=== PATIENT | female | born 1985 | race Caucasian/White ===

== ENCOUNTER 2017-11-03 06:09 | Day surgery (SDC) | payer SELFPAY ==
[2017-11-03 06:56] LABS: BASO # 0.1 K/uL (0.0-0.2); BASO % 0.6 % (0.0-2.0); EOS # 0.4 K/uL (0.0-0.7); EOS % 4.1 % (0.0-4.0); LYMPH # 2.1 K/uL (1.0-4.3); LYMPH % 22.3 % (20.0-40.0); MEAN CELL VOLUME 90.1 fL (81.0-99.0); MEAN CORPUSCULAR HEMOGLOBIN 31.5 pg (27.0-31.0); MEAN PLATELET VOLUME 9.2 fL (7.2-11.7); MONO # 0.6 K/uL (0.0-0.8); MONO % 6.7 % (0.0-10.0); NEUT # 6.2 K/uL (1.8-7.0); NEUT % 66.3 % (50.0-75.0); NRBC % 0.1 % (0.0-2.0); RBC 4.12 Mil/uL (3.80-5.20); RED CELL DISTRIBUTION WIDTH 13.2 % (11.5-14.5); WHITE BLOOD COUNT 9.3 K/uL (4.8-10.8)
--- NOTE | 2017-11-03 06:59 | C.PDOC ---
History Of Present Illness 32 year old female, who is currently 8 weeks (), presents to the ED for evaluation of vaginal bleeding and abdominal cramping which began two weeks ago and worsened today. Patient was evaluated by her CONTACT CLERK and underwent an ultrasound which showed a missed . Patient was advised to present to the ED for a D&C. Patient denies fever, chills. Time Seen by Provider: 11/03/17 06:25 Chief Complaint (Nursing): Female Genitourinary History Per: Patient History/Exam Limitations: no limitations Onset/Duration Of Symptoms: Days Current Symptoms Are (Timing): Worse Quality Of Discomfort: Cramping Associated Symptoms: denies: Fever, Chills Additional History Per: Patient Abnormal Vaginal Bleeding: Yes : 2 Para: 1 Past Medical History Reviewed: Historical Data, Nursing Documentation, Vital Signs Vital Signs: Last Vital Signs Temp 98.7 F 11/03/17 06:16 Pulse 110 H 11/03/17 06:16 Resp 20 11/03/17 06:16 BP 129/87 11/03/17 06:16 Pulse Ox 100 11/03/17 06:16 - Medical History PMH: No Chronic Diseases Surgical History: No Surg Hx Family History: States: Unknown Family Hx - Social History Hx Alcohol Use: No Hx Substance Use: No Review Of Systems Gastrointestinal: Positive for: Other (abdominal cramping ) Genitourinary: Positive for: Vaginal Bleeding Physical Exam - Physical Exam Appears: Non-toxic, No Acute Distress Skin: Normal Color, Warm, Dry Head: Atraumatic, Normacephalic Eye(s): bilateral: Normal Inspection Oral Mucosa: Moist Neck: Supple Chest: Symmetrical, No Deformity, No Tenderness Cardiovascular: Rhythm Regular, No Murmur Respiratory: Normal Breath Sounds, No Rales, No Rhonchi, No Wheezing Gastrointestinal/Abdominal: Soft, No Tenderness, No Guarding, No Rebound Extremity: Normal ROM, Capillary Refill (less than 2 seconds ) Neurological/Psych: Oriented x3, Normal Speech, Normal Cognition ED Course And Treatment O2 Sat by Pulse Oximetry: 100 (on RA) Pulse Ox Interpretation: Normal Disposition - Disposition - 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 - Scribe Statement The provider has reviewed the documentation as recorded by the Scribe (Shirley Larsen) All medical record entries made by the Scribe were at my direction and personally dictated by me. I have reviewed the chart and agree that the record accurately reflects my personal performance of the history, physical exam, medical decision making, and the department course for this patient. I have also personally directed, reviewed, and agree with the discharge instructions and disposition.
--- NOTE | 2017-11-03 07:00 | C.PDOC ---
History Of Present Illness 32 y/o female 8 week here for vaginal bleeding intermittently x 2 weeks but worse today with clots and suprapubic pain. No dizziness, weakness, fever Time Seen by Provider: 11/03/17 06:25 Chief Complaint (Nursing): Female Genitourinary History Per: Patient History/Exam Limitations: no limitations Current Symptoms Are (Timing): Still Present Severity: Moderate Associated Symptoms: denies: Fever, Back Pain Past Medical History Vital Signs: Last Vital Signs Temp 98.7 F 11/03/17 06:16 Pulse 110 H 11/03/17 06:16 Resp 20 11/03/17 06:16 BP 129/87 11/03/17 06:16 Pulse Ox 100 11/03/17 06:16 - Medical History PMH: No Chronic Diseases Family History: States: Unknown Family Hx - Social History Hx Alcohol Use: No Hx Substance Use: No Review Of Systems Constitutional: Negative for: Fever, Malaise Gastrointestinal: Positive for: Abdominal Pain Genitourinary: Positive for: Vaginal Bleeding Neurological: Negative for: Weakness Physical Exam - Physical Exam Appears: Well, Non-toxic Eye(s): bilateral: Normal Inspection, PERRL Cardiovascular: Rhythm Regular Respiratory: Normal Breath Sounds Gastrointestinal/Abdominal: Normal Exam, Tenderness (suprapubic), No Guarding Pelvic: Other (deferred- pt refused) ED Course And Treatment O2 Sat by Pulse Oximetry: 100 Progress Note: Labs sent. Case d/w Dr Noe, pt's OB who reported pt's previous US showed missed AB and in light of worseninf pain and heavy bleeding will admit to same day surgery for D&C. Disposition - Disposition Disposition: HOSPITALIZED Disposition Time: 07:04 Condition: STABLE Forms: [facility] (Sami) - Clinical Impression Clinical Impression: Incomplete
[2017-11-03 07:08] LABS: INR 1.2; PROTHROMBIN TIME 12.6 SECONDS (9.7-12.2)
[2017-11-03 07:10] LABS: ALB/GLOB RATIO 1.1 (1.0-2.1); ALBUMIN 4.3 g/dL (3.5-5.0); ALT/SGPT 16 U/L (9-52); AST/SGOT 23 U/L (14-36); BLOOD UREA NITROGEN 8 mg/dL (7-17); CALCIUM 10.1 mg/dl (8.6-10.4); GFR AFRICAN-AMERICAN > 60; GFR NON-AFRICAN AMERICAN > 60
--- NOTE | 2017-11-03 07:18 | CP.PCM.HP ---
History of Present Illness - History of Present Illness History of Present Illness: 32 yr lmp 09/03/17 9weeks came with vginal bleeding started yesterday and got heavy today with cramps. pt hd sonogram in [facility] on friday and no f obhx 1 x c/s pmh den med none all nkda psh c/s soch de plvic ex ex gen old blood , cervix dilated, ut 8week,no ad Present on Admission - Present on Admission Any Indicators Present on Admission: No History of DVT/PE: No History of Uncontrolled Diabetes: No Urinary Catheter: No Decubitus Ulcer Present: No Past Patient History - Past Social History Smoking Status: Never Smoked - PSYCHIATRIC Hx Substance Use: No - SURGICAL HISTORY Hx Surgeries: No Meds Allergies/Adverse Reactions: Allergies Allergy/AdvReac Type Severity Reaction Status Date / Time No Known Allergies Allergy Unverified 11/03/17 06:16 Physical Exam - Exam External exam: NORMAL EXTERNAL EXAM Speculum exam: Vaginal Bleeding Bimanual exam: NORMAL BIMANUAL EXAM (cervix dilated) Results - Vital Signs Recent Vital Signs: Last Vital Signs Temp 98.7 F 11/03/17 06:16 Pulse 110 H 11/03/17 06:16 Resp 20 11/03/17 06:16 BP 129/87 11/03/17 06:16 Pulse Ox 100 11/03/17 07:05 - Labs Result Diagrams: 11/03/17 06:47 11/03/17 06:47 Labs: Laboratory Results - last 24 hr 11/03/17 11/03/17 11/03/17 06:47 06:47 06:47 WBC 9.3 RBC 4.12 Hgb 13.0 Hct 37.2 MCV 90.1 MCH 31.5 H MCHC 35.0 RDW 13.2 Plt Count 242 MPV 9.2 Neut % (Auto) 66.3 Lymph % (Auto) 22.3 [place] % (Auto) 6.7 Eos % (Auto) 4.1 H Baso % (Auto) 0.6 Neut # (Auto) 6.2 Lymph # (Auto) 2.1 [place] # (Auto) 0.6 Eos # (Auto) 0.4 Baso # (Auto) 0.1 PT 12.6 H INR 1.2 APTT 37 H Sodium 141 Potassium 3.5 L Chloride 103 Carbon Dioxide 25 Anion Gap 16 BUN 8 Creatinine 0.6 L Est GFR ( Amer) > 60 Est GFR (Non-Af Amer) > 60 Random Glucose 107 H Calcium 10.1 Total Bilirubin 0.7 AST 23 ALT 16 Alkaline Phosphatase 64 Total Protein 8.4 H Albumin 4.3 Globulin 4.1 H Albumin/Globulin Ratio 1.1 Assessment & Plan - Assessment and Plan (Free Text) Assessment: 32 yr at 9weeks with incomplete Plan: plan 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
[2017-11-03 07:29] LABS: SQUAMOUS EPITHIAL 17 /hpf (0-5); URINE BACTERIA FEW (<OCC); URINE BILIRUBIN NEGATIVE (NEGATIVE); URINE BLOOD 3+ (NEGATIVE); URINE CLARITY Hazy (Clear); URINE GLUCOSE (UA) NORMAL (Normal); URINE LEUKOCYTE ESTERASE 2+ Leu/uL (Negative); URINE PROTEIN 1+ mg/dL (NEGATIVE); URINE UROBILINOGEN NORMAL mg/dL (0.2-1.0)
[2017-11-03 07:30] LABS: URINE COLOR YELLOW (YELLOW)
[2017-11-03] MEDS ORDERED: Midazolam 2 MG/2 ML VIAL ONE (08:19)
[2017-11-03] MEDS ORDERED: cefOXitin IV 1 gm in Dextrose 1 GM/50 ML BAG IVPB ONE (08:19)
[2017-11-03] MEDS ORDERED: Propofol 10 mg/ml Inj (20 ML) ONE (08:20)
[2017-11-03] MEDS ORDERED: Lactated Ringer's 1,000 ML IV ONE (08:37)
--- NOTE | 2017-11-03 08:48 | PCM.SURG1 ---
Surgeon's Initial Post Op Note - Surgeon's Notes Surgeon: dr cedeño [employer] Principal: none Type of Anesthesia: General LMA Anesthesia Administered By: dr jennings Pre-Operative Diagnosis: 32 yr at 9weekincomplete Operative Findings: see the op reort Post-Operative Diagnosis: same Operation Performed: suction d&c Specimen/Specimens Removed: poc. chromosome Estimated Blood Loss: EBL {In ML}: 20 Drains Used: No Drains Post-Op Condition: Good Date of Surgery/Procedure: 11/03/17 Time of Surgery/Procedure: 09:00
[2017-11-03 09:11] VITALS: O2SAT 100
[2017-11-03 10:24] VITALS: RESP 16
[2017-11-03 10:52] VITALS: BP 105/61; PULSE 72; TEMP 97.7
--- NOTE | 2017-11-03 20:15 | OP ---
PROCEDURE DATE: 11/03/2017 PREOPERATIVE DIAGNOSIS: A 32-year-old 2, para 1 at 9 weeks' incomplete . POSTOPERATIVE DIAGNOSIS: A 32-year-old 2, para 1 at 9 weeks' incomplete . SURGEON: Derrick Boss MD TYPE OF ANESTHESIA: General anesthesia. ANESTHESIOLOGIST: Luis Enrique Quintana MD PROCEDURE PERFORMED: Suction dilation and curettage. COMPLICATIONS: None. ESTIMATED BLOOD LOSS: 20 mL. DESCRIPTION OF PROCEDURE: After informed consent was obtained, the patient was brought to the operating room, placed on the table where general anesthesia was given. Once the anesthesia was found to be adequate, the patient was prepped and draped in the normal sterile fashion. Examination of the uterus revealed it to be 9 weeks' size. No pelvic or adnexal masses. Anterior lip of the cervix was grasped with a tenaculum. Gentle dilation of the cervix was done. After that, the suction 6-Danish and 7-Danish flexible was used to do the suction of the products. It was sent to pathology. Then, sharp curettage of the denise of the uterus was done. It was sent to pathology and then suction was done again. There were no more bleeding . After that, the tenaculum was then taken out of the anterior lip of the cervix. The patient tolerated the procedure well. Lap, sponge, and instrument counts were correct x2. Derrick Boss MD
== END 2017-11-03 10:51 | disposition home or self-care (01) ==
LOC: C.ER 06:09 → C.SDS 06:09
PROVIDERS: ATTEND Obstetrics & Gynecology
DX: O03.4 Incomplete spontaneous abortion without complication (principal)
CPT/HCPCS: 59812; 80053; 81001; 84702; 85025; 85610; 85730; 86850; 86900; 88233; 88262; 88305; 99285; J0694; J2250; J2704; J3010; J7120